=== PATIENT | male | born 1990 | race African-American/Black ===

== ENCOUNTER 2019-10-13 06:42 | Emergency (ER) | payer OTHER ==
[~2019-10-13] VITALS: Ht 165.1 cm; Wt 63.5 kg
[2019-10-13 06:45] VITALS: BP 118/81
--- NOTE | 2019-10-13 06:45 | NUR ---
ED Nurse Note: Pt aaox3, vss, no acute distress. Pt is cooperative and well groomed. Pt denies any injury or fall. No skin issues noted, pt on playground monitor and seizure precaution impemented. Family member at bedside. Pt brought in by [facility] from home c/o witnessed seizure by . Per EMS, does not know the duration but felt pt shake in repeative movements. Pt last seizure was 4 months ago when he last took Keppra. Pt off Keprra but is taking Warfarin.
[2019-10-13 07:08] LABS: HEMATOCRIT 45.6 % (42.0-52.0); MEAN CORPUSCULAR VOLUME 94 FL (80-99); PLATELET COUNT 87 K/UL (150-450); RED BLOOD COUNT 4.86 M/UL (4.70-6.10); RED CELL DISTRIBUTION WIDTH 12.5 % (11.6-14.8); WHITE BLOOD COUNT 3.5 K/UL (4.8-10.8)
--- NOTE | 2019-10-13 07:09 | NUR ---
ED Nurse Note: Blood and urine sent to lab.
[2019-10-13 07:10] VITALS: BP 105/59
--- NOTE | 2019-10-13 07:10 | NUR ---
ED Nurse Note: Report received from BERRY Cooper and was endorsed care. Pt is resting comfortably at this time, denies pain. 20g IV is patent and intact on R ac with NS infusing. Seizure precautions in place. Will continue to monitor.
--- NOTE | 2019-10-13 07:10 | NUR ---
HAND-OFF: Report given to BERRY Burns.
[2019-10-13 07:21] LABS: ANION GAP 18 mmol/L (5-15); BLOOD UREA NITROGEN 14 mg/dL (7-18); CALCIUM 9.2 MG/DL (8.5-10.1); CARBON DIOXIDE 19 MMOL/L (21-32); CHLORIDE 103 MMOL/L (98-107); CREATININE 1.5 MG/DL (0.55-1.30); POTASSIUM 3.9 MMOL/L (3.5-5.1); SODIUM 140 MMOL/L (136-145)
--- NOTE | 2019-10-13 07:24 | Emergency Room Report ---
History of Present Illness General Chief Complaint: Seizure Source: Patient, Significant Other, EMS Present Illness HPI 29-year-old male presents ED status post seizure. Brought in by EMS from home. at bedside states that patient had seizure around 6 AM. They were laying on the floor sleeping. She witnessed the seizure. Lasted for several seconds then resolved. There is no fall or head injury. Patient was initially postictal but is more alert and oriented upon arrival. Admits to history of seizures. States that he is supposed to take Keppra but states that he believed it caused more seizures so he stopped taking it. Denies any smoking or drug use. States he takes Coumadin for a valve replacement. Has not checked his labs in some time now. Denies any chest pain or shortness of breath. Denies any headaches nausea or vomiting. No other aggravating relieving factors. Denies any other associated symptoms Allergies: Coded Allergies: CEPHALEXIN (Verified Allergy, Unknown, 10/13/19) Patient History Past Medical History: CAD, seizures, renal disease Past Surgical History: other - valve replacement Pertinent Family History: none Social History: Denies: smoking, alcohol use, drug use Immunizations: UTD Reviewed Nursing Documentation: PMH: Agreed; PSxH: Agreed Nursing Documentation-PMH Hx Cardiac Problems: Yes - multiple stents Hx Dialysis: No - CKD Hx Seizures: Yes Review of Systems All Other Systems: negative except mentioned in HPI Physical Exam Vital Signs Date Time Temp Pulse Resp B/P (MAP) Pulse Ox O2 Delivery O2 Flow Rate FiO2 10/13/19 06:39 97.9 94 16 117/74 (88) 98 Room Air Sp02 EP Interpretation: reviewed, normal General Appearance: no apparent distress, alert, GCS 15, non-toxic Head: normocephalic, atraumatic Eyes: bilateral eye normal inspection, bilateral eye PERRL ENT: hearing grossly normal, normal pharynx, no angioedema, normal voice Neck: full range of motion, supple/symm/no masses Respiratory: chest non-tender, lungs clear, normal breath sounds, speaking full sentences Cardiovascular #1: regular rate, rhythm, no edema Cardiovascular #2: 2+ carotid (R), 2+ carotid (L), 2+ radial (R), 2+ radial (L) , 2+ dorsalis pedis (R), 2+ dorsalis pedis (L) Gastrointestinal: normal bowel sounds, non tender, soft, non-distended, no guarding, no rebound Rectal: deferred Genitourinary: normal inspection, no CVA tenderness Musculoskeletal: back normal, normal range of motion, gait/station normal, non- tender Neurologic: alert, motor strength/tone normal, oriented x3, sensory intact, responsive, speech normal Psychiatric: judgement/insight normal, memory normal, mood/affect normal, no suicidal/homicidal ideation Reflexes: 3+ bicep (R), 3+ bicep (L), 3+ tricep (R), 3+ tricep (L), 3+ knee (R) , 3+ knee (L) Lymphatic: no adenopathy Medical Decision Making Diagnostic Impression: Primary Impression: Seizure disorder Additional Impressions: Subtherapeutic international normalized ratio (INR) Renal insufficiency ER Course Hospital Course 29-year-old M presents to ED status post seizure. Differential diagnosis includes- breakthrough seizure, alcohol abuse, noncompliance with medication Clinical course Patient placed on stretcher. Initial history and physical I ordered labs, IV fluids, Keppra Labs- Cr 1.5, INR 1.1, no leukocytosis, hb/hct stable, Utox + THC EKG - NSR, no acute ischemic changes interpreted by me discussed findings with the patient. Explained that marijuana can lower seizure threshold. Given IV Keppra. Encourage compliance with his seizure medications. Creatinine is baseline for the patient. INR is subtherapeutic. Patient admits to not taking his Coumadin and does not have any. Will provide a refill. States he has a PMD. is a nurse and is at bedside it will encourage compliance on the patient. Diagnosis - seizure, subtherapeutic INR, renal insufficiency stable and discharged to home with Rx Keppra, Coumadin. Followup with PMD. Return to ED if symptoms recur or worsen Labs Test 10/13/19 06:51 10/13/19 07:07 White Blood Count 3.5 K/UL (4.8-10.8) Red Blood Count 4.86 M/UL (4.70-6.10) Hemoglobin 15.0 G/DL (14.2-18.0) Hematocrit 45.6 % (42.0-52.0) Mean Corpuscular Volume 94 FL (80-99) Mean Corpuscular Hemoglobin 30.8 PG (27.0-31.0) Mean Corpuscular Hemoglobin Concent 32.9 G/DL (32.0-36.0) Red Cell Distribution Width 12.5 % (11.6-14.8) Platelet Count 87 K/UL (150-450) Mean Platelet Volume 9.6 FL (6.5-10.1) Neutrophils (%) (Auto) % (45.0-75.0) Lymphocytes (%) (Auto) % (20.0-45.0) Monocytes (%) (Auto) % (1.0-10.0) Eosinophils (%) (Auto) % (0.0-3.0) Basophils (%) (Auto) % (0.0-2.0) Differential Total Cells Counted 100 Neutrophils % (Manual) 65 % (45-75) Lymphocytes % (Manual) 24 % (20-45) Monocytes % (Manual) 8 % (1-10) Eosinophils % (Manual) 3 % (0-3) Basophils % (Manual) 0 % (0-2) Band Neutrophils 0 % (0-8) Platelet Estimate Decreased Platelet Morphology Normal Red Blood Cell Morphology Normal Prothrombin Time 11.4 SEC (9.30-11.50) Prothromb Time International Ratio 1.1 (0.9-1.1) Activated Partial Thromboplast Time 27 SEC (23-33) Sodium Level 140 MMOL/L (136-145) Potassium Level 3.9 MMOL/L (3.5-5.1) Chloride Level 103 MMOL/L (98-107) Carbon Dioxide Level 19 MMOL/L (21-32) Anion Gap 18 mmol/L (5-15) Blood Urea Nitrogen 14 mg/dL (7-18) Creatinine 1.5 MG/DL (0.55-1.30) Estimat Glomerular Filtration Rate > 60 mL/min (>60) Glucose Level 104 MG/DL (74-106) Calcium Level 9.2 MG/DL (8.5-10.1) Total Bilirubin 0.5 MG/DL (0.2-1.0) Aspartate Amino Transf (AST/SGOT) 62 U/L (15-37) Alanine Aminotransferase (ALT/SGPT) 108 U/L (12-78) Alkaline Phosphatase 486 U/L (46-116) Troponin I 0.000 ng/mL (0.000-0.056) Total Protein 8.1 G/DL (6.4-8.2) Albumin 3.9 G/DL (3.4-5.0) Globulin 4.2 g/dL Albumin/Globulin Ratio 0.9 (1.0-2.7) Acetaminophen Level < 2 MCG/ML (10-30) Serum Alcohol < 3 mg/dL Urine Opiates Screen Negative (NEGATIVE) Urine Barbiturates Screen Negative (NEGATIVE) Phencyclidine (PCP) Screen Negative (NEGATIVE) Urine Amphetamines Screen Negative (NEGATIVE) Urine Benzodiazepines Screen Negative (NEGATIVE) Urine Cocaine Screen Negative (NEGATIVE) Urine Marijuana (THC) Screen Positive (NEGATIVE) EKG Diagnostic Results Rate: normal Rhythm: NSR ST Segments: no acute changes ASA given to the pt in ED: No Rhythm Strip Diag. Results EP Interpretation: yes Rhythm: NSR, no PVC's, no ectopy Last Vital Signs Date Time Temp Pulse Resp B/P (MAP) Pulse Ox O2 Delivery O2 Flow Rate FiO2 10/13/19 06:45 98.4 21 118/81 100 Room Air 10/13/19 06:45 103 Status: improved Disposition: HOME, SELF-CARE Condition: Stable Scripts Levetiracetam (KEPPRA) 500 Mg Tablet 500 MG ORAL ONCE for 30 Days, TAB 0 Refills Prov: Eduardo Ricketts MD 10/13/19 Warfarin Sod (COUMADIN*) 7.5 Mg Tablet 7.5 MG ORAL DAILY, #30 TAB Prov: Eduardo Ricketts MD 10/13/19 Referrals: NON PHYSICIAN (PCP) Eduardo Ricketts MD Oct 13, 2019 07:23
[2019-10-13 07:25] LABS: ALANINE AMINOTRANSFERASE 108 U/L (12-78); ALBUMIN 3.9 G/DL (3.4-5.0); ALBUMIN/GLOBULIN RATIO 0.9 (1.0-2.7); ALKALINE PHOSPHATASE 486 U/L (46-116); ASPARTATE AMINO TRANSFERASE 62 U/L (15-37); BILIRUBIN,TOTAL 0.5 MG/DL (0.2-1.0)
[2019-10-13 07:37] LABS: INR 1.1 (0.9-1.1)
[2019-10-13] MEDS ORDERED: COUMADIN7.5 MG ORAL ×2 (07:59→09:11)
[2019-10-13] MEDS ORDERED: PREDNISONE2.5 MG ORAL (07:59)
[2019-10-13] MEDS ORDERED: PROGRAF5 MG PO (07:59)
[2019-10-13] MEDS ORDERED: levETIRAcetam 500 MG in D5W 110 ML IV ONE (08:30)
[2019-10-13] MEDS ORDERED: KEPPRA500 M4 ORAL (09:11)
[2019-10-13 09:15] VITALS: BP 111/90
--- NOTE | 2019-10-13 09:15 | NUR ---
ER DISCHARGE NOTE: Patient is cleared to be discharged per ERMD, pt is aox4, on room air, with stable vital signs. pt was given dc and prescription instructions, pt was able to verbalize understanding, pt id band and iv site removed without complications. pt is able to ambulate with steady gait. pt took all belongings. pt family member accompanied pt for discharge.
== END 2019-10-13 09:24 | disposition home or self-care (01) ==
LOC: EDBD 06:42 → EMR 07:04
DX: G40.909 Epilepsy, unspecified, not intractable, without status epilepticus (principal); N28.9 Disorder of kidney and ureter, unspecified; Z88.8 Allergy status to other drugs, medicaments and biological substances; N18.9 Chronic kidney disease, unspecified; I25.10 Atherosclerotic heart disease of native coronary artery without angina pectoris; Z95.5 Presence of coronary angioplasty implant and graft
CPT/HCPCS: 36415; 80053; 80307; 84484; 85007; 85025; 85610; 85730; 93005; 96361; 96374; G0480; J1953; Z7502; 99284